=== PATIENT | male | born 1950 | race African-American/Black ===

== ENCOUNTER 2020-08-12 02:00 | Observation (INO) ==
[2020-08-12 03:38] LABS: Basophils % 0.3 % (0.0-0.8); Eosinophils # 0.1 10*3/uL (0.0-0.87); Eosinophils % 0.7 % (0.00-10.9); Hematocrit 30.5 VOL% (42.0-52.0); Hemoglobin 10.1 GM/DL (14.0-18.0); Immature Granulocytes % 0.3 %; Immature Granulocytes Absolute 0.04 #; Lymphocytes # 2.2 10*3/uL (1.4-4.0); Lymphocytes % 17.9 % (21.2-54.2); Mean Corpuscular HGB Conc 33.1 GM/DL (32-36); Mean Corpuscular Volume 88.9 FL (87-102); Mean Platelet Volume 12.1 FL (9.6-12.0); Monocytes % 6.9 % (1.7-12.7); Neutrophils % 73.9 % (38.7-73.9); Platelet Count 183 T/CUMM (130-400); Red Blood Count 3.43 MC/CUMM (3.8-5.5); Red Cell Distribution Width 13.8 % (9.3-17.3); White Blood Count 12.3 T/CUMM (4-12)
[2020-08-12] MEDS ORDERED: DEXTROSE 50% 25 GM/50 ML VIAL IV PRN (05:57)
[2020-08-12] MEDS ORDERED: GLUCAGON 1 MG VIAL IM PRN (05:57)
[2020-08-12 07:22] LABS: Ferritin 117.1 ng/ml (26-388)
[2020-08-12] MEDS ORDERED: ALBUTEROL INHALER 18 GM INH PRN (07:23)
[2020-08-12] MEDS ORDERED: POLYVINYL ALCOHOL 1.4% OPH SOLN 15 ML BOTTLE BOTH EYES PRN (07:24)
[2020-08-12] MEDS: INSULIN REGULAR 100 UNIT/ML SUBCUT SCH ×4 (08:30→21:07)
[2020-08-12] MEDS: carvediloL 25 MG TABLET PO SCH ×2 (09:13→16:46)
[2020-08-12] MEDS: TAMSULOSIN 0.4 MG CAPSULE PO SCH (09:13)
[2020-08-12] MEDS: LOSARTAN 25 MG TABLET PO SCH (09:13)
[2020-08-12] MEDS: CALCIUM (CARBONATE)/VITAMIN D 600 MG-400 UNIT TABLET PO SCH (09:13)
[2020-08-12] MEDS: FLUTICASONE 50 MCG NASAL SPRAY 16 GM BOTTLE BOTH NARES SCH (09:13)
[2020-08-12] MEDS: FOLIC ACID 1 MG TABLET PO SCH (09:14)
[2020-08-12] MEDS: PANTOPRAZOLE 40 MG VIAL IV SCH ×2 (09:14→21:05)
[2020-08-12] MEDS: allopurinoL 300 MG TABLET PO SCH (09:14)
[2020-08-12 11:04] LABS: Hematocrit 30.4 VOL% (42.0-52.0)
[2020-08-12 13:51] LABS: Hematocrit 28.5 VOL% (42.0-52.0); Hemoglobin 9.4 GM/DL (14.0-18.0)
[2020-08-12 18:57] LABS: Hematocrit 26.1 VOL% (42.0-52.0); Hemoglobin 8.8 GM/DL (14.0-18.0)
[2020-08-13 06:51] LABS: Basophils % 0.5 % (0.0-0.8); Eosinophils # 0.3 10*3/uL (0.0-0.87); Eosinophils % 3.9 % (0.00-10.9); Hematocrit 26.8 VOL% (42.0-52.0); Hemoglobin 8.8 GM/DL (14.0-18.0); Immature Granulocytes % 0.7 %; Immature Granulocytes Absolute 0.06 #; Lymphocytes % 23.5 % (21.2-54.2); Mean Corpuscular HGB Conc 32.8 GM/DL (32-36); Mean Corpuscular Volume 89.3 FL (87-102); Mean Platelet Volume 11.5 FL (9.6-12.0); Monocytes % 6.1 % (1.7-12.7); Neutrophils % 65.3 % (38.7-73.9); Platelet Count 150 T/CUMM (130-400); Red Cell Distribution Width 13.9 % (9.3-17.3); White Blood Count 8.6 T/CUMM (4-12)
[2020-08-13 07:16] LABS: Osmolality,Calculated 283.3 MOS/KG (273-304)
[2020-08-13] MEDS: CALCIUM (CARBONATE)/VITAMIN D 600 MG-400 UNIT TABLET PO SCH (09:15)
[2020-08-13] MEDS: allopurinoL 300 MG TABLET PO SCH (09:15)
[2020-08-13] MEDS: TAMSULOSIN 0.4 MG CAPSULE PO SCH (09:15)
[2020-08-13] MEDS: FLUTICASONE 50 MCG NASAL SPRAY 16 GM BOTTLE BOTH NARES SCH (09:15)
[2020-08-13] MEDS: FOLIC ACID 1 MG TABLET PO SCH (09:15)
[2020-08-13] MEDS: LOSARTAN 25 MG TABLET PO SCH (09:15)
[2020-08-13] MEDS: INSULIN REGULAR 100 UNIT/ML SUBCUT SCH ×4 (09:19→20:21)
[2020-08-13] MEDS: carvediloL 25 MG TABLET PO SCH ×2 (09:20→17:09)
[2020-08-13] MEDS: PANTOPRAZOLE 40 MG VIAL IV SCH ×2 (09:37→20:20)
[2020-08-13] MEDS ORDERED: MAGNESIUM SULF RIDER 4 GM in PREMIX 1 EACH IV ONE (10:00)
[2020-08-13] MEDS: POTASSIUM CHLORIDE 20 MEQ TABLET PO SCH ×3 (10:05→17:09)
[2020-08-13] MEDS ORDERED: ROCURONIUM 100 MG/10 ML VIAL IV ONE (23:34)
[2020-08-13] MEDS ORDERED: ETOMIDATE 20 MG/10 ML VIAL IV ONE (23:34)
[2020-08-14 06:07] LABS: Basophils % 0.5 % (0.0-0.8); Eosinophils # 0.4 10*3/uL (0.0-0.87); Eosinophils % 4.3 % (0.00-10.9); Hematocrit 25.9 VOL% (42.0-52.0); Hemoglobin 8.6 GM/DL (14.0-18.0); Immature Granulocytes % 0.5 %; Immature Granulocytes Absolute 0.04 #; Lymphocytes # 2.2 10*3/uL (1.4-4.0); Lymphocytes % 26.6 % (21.2-54.2); Mean Corpuscular HGB Conc 33.2 GM/DL (32-36); Mean Corpuscular Volume 88.4 FL (87-102); Mean Platelet Volume 11.5 FL (9.6-12.0); Neutrophils % 61.1 % (38.7-73.9); Platelet Count 162 T/CUMM (130-400); Red Blood Count 2.93 MC/CUMM (3.8-5.5); Red Cell Distribution Width 13.6 % (9.3-17.3); White Blood Count 8.2 T/CUMM (4-12)
[2020-08-14 06:41] LABS: Ferritin 107.9 ng/ml (26-388)
[2020-08-14 06:45] LABS: Alanine Aminotransferase 13 U/L (16-61); Albumin 2.5 G/DL (3.4-5.0); Alkaline Phosphatase 40 U/L (45-117); Aspartate Amino Transferase 11 U/L (0-37); Bilirubin,Total < 0.39 MG/DL (0.2-1.0); Blood Urea Nitrogen 14 MG/DL (7-18); Calcium 7.8 MG/DL (8.5-10.1); Estimated Glom Filtration Rate 133 ML/MIN; Glucose 102 MG/DL (74-106); Osmolality,Calculated 283.1 MOS/KG (273-304); Total Protein 5.6 G/DL (6.4-8.3)
[2020-08-14] MEDS ORDERED: POTASSIUM CHLORIDE 20 MEQ TABLET PO PRN (07:30)
[2020-08-14] MEDS: INSULIN REGULAR 100 UNIT/ML SUBCUT SCH ×2 (07:50→12:33)
[2020-08-14] MEDS: TAMSULOSIN 0.4 MG CAPSULE PO SCH (09:36)
[2020-08-14] MEDS: LOSARTAN 25 MG TABLET PO SCH (09:36)
[2020-08-14] MEDS: PANTOPRAZOLE 40 MG VIAL IV SCH (09:36)
[2020-08-14] MEDS: carvediloL 25 MG TABLET PO SCH (09:36)
[2020-08-14] MEDS: allopurinoL 300 MG TABLET PO SCH (09:36)
[2020-08-14] MEDS: FLUTICASONE 50 MCG NASAL SPRAY 16 GM BOTTLE BOTH NARES SCH (09:36)
[2020-08-14] MEDS: FOLIC ACID 1 MG TABLET PO SCH (09:36)
[2020-08-14] MEDS: CALCIUM (CARBONATE)/VITAMIN D 600 MG-400 UNIT TABLET PO SCH (09:36)
[2020-08-14 11:51] VITALS: BP 170/78
== END 2020-08-14 16:51 | disposition home or self-care (01) ==
LOC: SUATTDRO → N.EDINP 02:00 → N.ED 02:00 → N.2E 07:28
PROVIDERS: ADMIT Family Medicine; ATTEND Family Medicine